=== PATIENT | male | born 1985 | race Caucasian/White ===

== ENCOUNTER 2018-01-12 18:19 | Emergency (ER) | payer SELFPAY ==
[2018-01-12 18:28] VITALS: BP 137/80; PULSE 73; RESP 16; TEMP 98.4; O2SAT 100
[2018-01-12] MEDS ORDERED: BACT800T5 PO (20:21)
[2018-01-12] MEDS ORDERED: IBUP1TAB7 PO (20:21)
--- NOTE | 2018-01-12 20:27 | PD ---
HPI Chief Complaint: Skin Problem Time Seen by Provider: 20:14 Travel History International Travel<30 days: No Contact w/Intl Traveler<30days: No Traveled to known affect area: No History of Present Illness HPI 32-year-old white male presents emergency department complaining of a painful lump to the back of his right calf over the last week. He states that he is living in a sober living facility. Patient denies any fever chills. Pain is mild. No alleviating or exacerbating activities. No prior history of abscess PFSH Past Medical History Narrative Medical Substance abuse Tetanus Vaccination: < 5 Years Past Surgical History Surgical History: No Previous Surgery Social History Alcohol Use: No Tobacco Use: No Substance Use: Yes (hx or molie) Allergies-Medications (Allergen,Severity, Reaction): Coded Allergies: No Known Allergies (Unverified , 01/12/18) Reported Meds & Prescriptions Reported Meds & Active Scripts Active Ibuprofen 800 Mg Tab 800 Mg PO Q8H PRN 7 Days Bactrim DS (Sulfamethoxazole-Trimethoprim) 800-160 Mg Tab 1 Tab PO BID Review of Systems Except as stated in HPI: all other systems reviewed are Neg Physical Exam Narrative GENERAL: This is a well-nourished, well-developed patient, in no apparent distress. SKIN: Patient has multiple follicular lesions to the posterior aspect of the right calf., ecchymoses or lesions. Warm and dry. HEAD: Atraumatic. Normocephalic. EYES: PERRL, EOMI, no discharge or injection. No scleral icterus. EARS: Clear NOSE: Nasal turbinates appear normal. THROAT: Mucosa pink and moist. Airway patent. NECK: Trachea midline. supple, moves head freely. LUNGS: Clear to auscultation. CV: Regular in rhythm. ABDOMEN: Soft nontender. EXT: No clubbing cyanosis or edema. Data Data Last Documented VS Vital Signs Date Time Temp Pulse Resp B/P (MAP) Pulse Ox O2 Delivery O2 Flow Rate FiO2 01/12/18 18:28 98.4 73 16 137/80 (99) 100 Orders Orders Ed Discharge Order (01/12/18 20:20) MDM Medical Decision Making Medical Screen Exam Complete: Yes Emergency Medical Condition: Yes Medical Record Reviewed: Yes Differential Diagnosis MDM: High Differential diagnoses: Abscess, folliculitis, cellulitis, lymphangitis, abrasion, contact dermatitis Narrative Course Folliculitis Diagnosis Primary Impression: Folliculitis Patient Instructions: General Instructions Additional Instructions: Rest. Elevation. keep clean and dry. Warm compresses Daily wound care with soap, water and Neosporin. Motrin and Bactrim DS. Follow-up with a primary care doctor in one week. Return to the ER for any problems. Med/Other Pt SpecificInfo: Prescription(s) given Scripts Ibuprofen (Ibuprofen) 800 Mg Tab 800 MG PO Q8H Y for PAIN GREATER THAN 5 for 7 Days, #21 TAB 0 Refills Prov: Sofiya Hill MD 01/12/18 Sulfamethoxazole-Trimethoprim (Bactrim DS) 800-160 Mg Tab 1 TAB PO BID for Infection, #20 TAB 0 Refills Prov: Sofiya Hill MD 01/12/18 Disposition: 01 DISCHARGE HOME Condition: Stable Marc Melgar Jan 12, 2018 20:27
== END 2018-01-12 20:48 | disposition home or self-care (01) ==
LOC: NEPD 18:19
DX: L73.9 Follicular disorder, unspecified (principal)
CPT/HCPCS: 99283

== ENCOUNTER 2018-04-29 02:49 | Emergency (ER) | payer SELFPAY ==
[~2018-04-29 02:49] MED LIST: BACT800T5 PO; IBUP1TAB7 PO
[2018-04-29 02:51] VITALS: BP 132/92; PULSE 102; RESP 18; TEMP 98; O2SAT 100
[2018-04-29] MEDS ORDERED: SODIUM CHLORIDE 0.9% FLUSH 10 ML FLUSH IV FLUSH PRN (03:15)
[2018-04-29] MEDS ORDERED: LORazepam 2 MG/ML VIAL IV PUSH ONE (03:15)
[2018-04-29] MEDS ORDERED: SODIUM CHLOR 0.9% 1000 ML INJ 1,000 ML IV SCH (03:15)
[2018-04-29 03:52] LABS: BILIRUBIN, URINE NEG (NEG); BLOOD, URINE SMALL (NEG); GLUCOSE,URINE NEG (NEG); HYALINE CAST, URINE 37 /lpf (RARE); KETONE, URINE NEG (NEG); MUCUS URINE FEW /lpf (OCC); NITRITE,URINE NEG (NEG); URINE COLOR YELLOW (YELLW/STRAW); URINE LEUKOCYTE ESTERASE NEG (NEG)
[2018-04-29 03:56] VITALS: RESP 16
[2018-04-29 04:06] LABS: ALBUMIN 3.8 GM/DL (3.4-5.0); ALKALINE PHOSPHATASE 62 U/L (45-117); ALT (GPT) 38 U/L (12-78); AST (GOT) 35 U/L (15-37); BICARBONATE 25.9 MEQ/L (21.0-32.0); BLOOD UREA NITROGEN 19 MG/DL (7-18); CALCIUM 9.2 MG/DL (8.5-10.1); CHLORIDE 106 MEQ/L (98-107); CREATININE 1.35 MG/DL (0.60-1.30); GLOMERULAR FILTRATION RATE 62 ML/MIN (>89); GLUCOSE,RANDOM 63 MG/DL (74-106); SODIUM (NA) 140 MEQ/L (136-145); TOTAL BILIRUBIN ADULT 0.5 MG/DL (0.2-1.0); TOTAL PROTEIN 8.3 GM/DL (6.4-8.2)
[2018-04-29 04:48] LABS: AUTOMATED NEUTROPHIL # 3.8 TH/MM3 (1.8-7.7); BASOPHIL % 0.5 % (0.0-2.0); EOSINOPHIL # 0.1 TH/MM3 (0-0.4); EOSINOPHIL % 0.8 % (0.0-4.0); HEMOGLOBIN 11.5 GM/DL (13.0-17.0); LYMPH % 30.9 % (9.0-44.0); MEAN CELL VOLUME 88.3 FL (80.0-100.0); MEAN CORPUSCULAR HEMOGLOBIN 29.8 PG (27.0-34.0); MEAN CORPUSCULAR HGB CONC 33.8 % (32.0-36.0); MEAN PLATELET VOLUME 7.2 FL (7.0-11.0); MONO % 9.6 % (0.0-8.0); MONOCYTE # 0.6 TH/MM3 (0-0.9); NEUT % 58.2 % (16.0-70.0); PLATELET COUNT 336 TH/MM3 (150-450); RED BLOOD COUNT 3.85 MIL/MM3 (4.50-5.90); RED CELL DISTRIBUTION WIDTH 12.9 % (11.6-17.2); WHITE BLOOD COUNT 6.5 TH/MM3 (4.0-11.0)
[2018-04-29 04:49] VITALS: PULSE 64; RESP 16; O2SAT 100
--- NOTE | 2018-04-29 05:11 | RADRPT ---
EXAM DATE: 04/29/2018 4:33 AM EDT AGE/SEX: 32 years / Male INDICATIONS: Abdominal pain. CLINICAL DATA: This is the patient's initial encounter. Patient reports that signs and symptoms have been present for 1 day and indicates a pain score of Nonresponsive. MEDICAL/SURGICAL HISTORY: . Substance abuse Non-responsive. RADIATION DOSE: 6.64 CTDI (mGy) COMPARISON: No prior exams available for comparison. TECHNIQUE: Multiple contiguous axial images were obtained through the abdomen. Images were obtained using multiple row detector helical technique. Using dose reduction techniques, radiation dose was ke pt as low as reasonably achievable to obtain optimal diagnostic quality images. FINDINGS: Lower Lungs: The visualized lower lungs are clear. Liver: The liver has a homogeneous density without space-occupying lesion. There is no dilation of th e biliary tree. Gallstone present in the gallbladder Spleen: Homogeneous density without enlargement. Pancreas: Unremarkable without mass or calcification. Kidneys: Normal in size and shape. No evidence of mass or hydronephrosis. Adrenal Glands: Unremarkable. Aorta: The aorta and proximal iliac vessels are grossly unremarkable without aneurysmal dilation. Bowel/Mesentery: The bowel loops are grossly unremarkable. The cecum and sigmoid colon have a normal configuration. Abdominal Wall: Intact. Retroperitoneum: No evidence of adenopathy in the retrocrural, para-aortic, or deep pelvic regions. Bladder: Contours are smooth. Reproductive Organs: No abnormal masses or calcifications seen. Inguinal: The inguinal region is unremarkable without evidence of adenopathy. Bony Structures: Unremarkable. CONCLUSION: The small bowel is fluid-filled. I cannot identify a normal-appearing appendix or abnormal appendix. Repeat study with oral and IV contrast could be performed. There is a gallstone present Electronically signed by: Nima Taylor MD 04/29/2018 5:10 AM EDT
--- NOTE | 2018-04-29 05:35 | PD ---
HPI Chief Complaint: GI Complaint Time Seen by Provider: 03:05 Travel History International Travel<30 days: No Contact w/Intl Traveler<30days: No Traveled to known affect area: No History of Present Illness HPI Patient is a 32 year old male who comes in complaining of pain to his right flank and right side of the abdomen as well as the left side of his jaw. He says he urinated blood earlier today. He admits to using drugs earlier today and says that he just "can't slow down." He says he is sure he has an infection inside of him. He denies fever or chills. He is asking for something to help him calm down. He denies chest pain or SOB. Severity is mild to moderate. PFSH Past Medical History Diminished Hearing: No Hepatitis: Yes Immunizations Current: Yes Past Surgical History Surgical History: No Previous Surgery Social History Alcohol Use: No Tobacco Use: No Substance Use: Yes (hx TAMY. METH, SUBOXONE) Allergies-Medications (Allergen,Severity, Reaction): Coded Allergies: No Known Allergies (Unverified , 04/29/18) Reported Meds & Prescriptions Reported Meds & Active Scripts Active Ibuprofen 800 Mg Tab 800 Mg PO Q8H PRN 7 Days Bactrim DS (Sulfamethoxazole-Trimethoprim) 800-160 Mg Tab 1 Tab PO BID Review of Systems Except as stated in HPI: all other systems reviewed are Neg General / Constitutional: No: Fever, Chills HENT: No: Headaches, Lightheadedness Cardiovascular: No: Chest Pain or Discomfort Respiratory: No: Shortness of Breath Gastrointestinal: No: Nausea, Vomiting Genitourinary: Positive: Flank Pain Skin: Positive Rash Neurologic: No: Weakness, Dizziness Physical Exam Narrative GENERAL: Awake and alert, no acute distress. SKIN: Focused skin assessment warm/dry. Rash to the left side of the jaw, at the midline of his velasco. HEAD: Atraumatic. Normocephalic. EYES: Pupils equal and round and reactive. No scleral icterus. ENT: Mucous membranes pink and moist. NECK: Trachea midline. No JVD. CARDIOVASCULAR: Regular rate and rhythm. No murmur appreciated. RESPIRATORY: No accessory muscle use. Clear to auscultation. Breath sounds equal bilaterally. GASTROINTESTINAL: Abdomen soft, non-tender, nondistended. No CVA tenderness. MUSCULOSKELETAL: No obvious deformities. No clubbing. No cyanosis. No edema. NEUROLOGICAL: Awake and alert. No obvious cranial nerve deficits. Motor grossly within normal limits. Normal speech. PSYCHIATRIC: Appropriate mood and affect; insight and judgment normal. Data Data Last Documented VS Vital Signs Date Time Temp Pulse Resp B/P (MAP) Pulse Ox O2 Delivery O2 Flow Rate FiO2 04/29/18 04:49 64 16 100 Room Air 04/29/18 02:51 98.0 132/92 (105) Orders Orders Complete Blood Count With Diff (04/29/18 03:15) Comprehensive Metabolic Panel (04/29/18 03:15) Urinalysis - C+S If Indicated (04/29/18 03:15) Ct Abd/Pel W/O Iv Contrast (04/29/18 03:15) Iv Access Insert/Monitor (04/29/18 03:15) Ecg Monitoring (04/29/18 03:15) Oximetry (04/29/18 03:15) Sodium Chlor 0.9% 1000 Ml Inj (Ns 1000 M (04/29/18 03:15) Sodium Chloride 0.9% Flush (Ns Flush) (04/29/18 03:15) Creatine Kinase (Cpk) (04/29/18 03:15) Drug Screen, Random Urine (04/29/18 03:15) Lorazepam Inj (Ativan Inj) (04/29/18 03:15) Labs Laboratory Tests Test 04/29/18 03:30 04/29/18 04:35 Urine Color YELLOW Urine Turbidity HAZY Urine pH 5.0 Urine Specific [place] 1.021 Urine Protein 100 mg/dL Urine Glucose (UA) NEG mg/dL Urine Ketones NEG mg/dL Urine Occult Blood SMALL Urine Nitrite NEG Urine Bilirubin NEG Urine Urobilinogen LESS THAN 2 mg/dL Urine Leukocyte Esterase NEG Urine RBC 4 /hpf Urine WBC 4 /hpf Urine Hyaline Casts 37 /lpf Urine Mucus FEW /lpf Microscopic Urinalysis Comment CULT NOT INDICATED Blood Urea Nitrogen 19 MG/DL Creatinine 1.35 MG/DL Random Glucose 63 MG/DL Total Protein 8.3 GM/DL Albumin 3.8 GM/DL Calcium Level 9.2 MG/DL Alkaline Phosphatase 62 U/L Aspartate Amino Transf (AST/SGOT) 35 U/L Alanine Aminotransferase (ALT/SGPT) 38 U/L Total Bilirubin 0.5 MG/DL Sodium Level 140 MEQ/L Potassium Level 4.6 MEQ/L Chloride Level 106 MEQ/L Carbon Dioxide Level 25.9 MEQ/L Anion Gap 8 MEQ/L Estimat Glomerular Filtration Rate 62 ML/MIN Total Creatine Kinase 188 U/L Urine Opiates Screen NEG Urine Barbiturates Screen NEG Urine Amphetamines Screen POS Urine Benzodiazepines Screen NEG Urine Cocaine Screen POS Urine Cannabinoids Screen NEG White Blood Count 6.5 TH/MM3 Red Blood Count 3.85 MIL/MM3 Hemoglobin 11.5 GM/DL Hematocrit 34.0 % Mean Corpuscular Volume 88.3 FL Mean Corpuscular Hemoglobin 29.8 PG Mean Corpuscular Hemoglobin Concent 33.8 % Red Cell Distribution Width 12.9 % Platelet Count 336 TH/MM3 Mean Platelet Volume 7.2 FL Neutrophils (%) (Auto) 58.2 % Lymphocytes (%) (Auto) 30.9 % Monocytes (%) (Auto) 9.6 % Eosinophils (%) (Auto) 0.8 % Basophils (%) (Auto) 0.5 % Neutrophils # (Auto) 3.8 TH/MM3 Lymphocytes # (Auto) 2.0 TH/MM3 Monocytes # (Auto) 0.6 TH/MM3 Eosinophils # (Auto) 0.1 TH/MM3 Basophils # (Auto) 0.0 TH/MM3 CBC Comment DIFF FINAL Differential Comment MDM Medical Decision Making Medical Screen Exam Complete: Yes Emergency Medical Condition: Yes Medical Record Reviewed: Yes Differential Diagnosis renal stone vs rhabdo vs dehydration vs intoxication Narrative Course Patient is a 32 year old male who comes in because he urinated blood, had right flank pain and left jaw pain. Exam shows abdomen is nontender to palpation. Patient requesting something to calm down. IV established, labs sent. Labs show no acute abnormalities. Given IVF an Ativan. CT abd/pelvis performed to asses for renal stone shows no acute abnormalities. Last 24 hours Impressions Abdomen/Pelvis CT 04/29/18 0315 Signed Impressions: CONCLUSION: The small bowel is fluid-filled. I cannot identify a normal-appearing appendix or abnormal appendix. Repeat study with oral and IV contrast could be performed . There is a gallstone present Reexamination of his abdomen still shows no tenderness. Patient discharged home. Advised to quit using drugs. Advised to increase his fluid intake. Advised to return to the ED as needed for any worsening symptoms. Diagnosis Primary Impression: Drug abuse Patient Instructions: General Instructions, Methamphetamine Abuse (ED) Additional Instructions: Stop using drugs. He increase her fluid intake. Return to the ED as needed for any worsening symptoms. Disposition: 01 DISCHARGE HOME Condition: Stable Sofiya Hill MD Apr 29, 2018 05:35
[2018-04-29] MEDS ORDERED: MUPI2OIN TOPICAL (14:04)
== END 2018-04-29 06:10 | disposition home or self-care (01) ==
LOC: NEPE 02:49
DX: F19.10 Other psychoactive substance abuse, uncomplicated (principal); R10.9 Unspecified abdominal pain; R68.84 Jaw pain; R31.9 Hematuria, unspecified; Z79.899 Other long term (current) drug therapy
CPT/HCPCS: 74176; 80053; 80307; 81001; 82550; 85025; 96361; 96374; 99284; J2060; J7030

== ENCOUNTER 2018-04-29 11:53 | Emergency (ER) | payer SELFPAY ==
[~2018-04-29] VITALS: Ht 172.7 cm; Wt 70.0 kg
[2018-04-29 12:00] VITALS: BP 121/61; PULSE 67; RESP 16; TEMP 97.5; O2SAT 100
[2018-04-29] MEDS ORDERED: MUPI2OIN TOPICAL (14:04)
--- NOTE | 2018-04-29 14:10 | PD ---
HPI Chief Complaint: Musculoskeletal Complaint Time Seen by Provider: 13:42 Travel History International Travel<30 days: No Contact w/Intl Traveler<30days: No Traveled to known affect area: No History of Present Illness HPI 32-year-old male presents to the emergency room for evaluation of pain to bilateral jaw, left worse than right. Symptoms have been present for 3 weeks. States the area is sore to the touch. He denies any trauma or injury to the area. He has not been able to shave because of the pain. Sometimes radiates into his entire scalp. He reports pain with movement of the jaw. Denies dental pain or ear pain. Denies any ear drainage. He has not been applying anything to the area. Patient uses IV heroin, last use 2 days ago. States he is actively withdrawing and is requesting medication to help him get through his withdrawals. Symptoms are shakiness, anxiety. He is requesting tramadol, Lortab, or Ativan. PFSH Past Medical History Diminished Hearing: No Hepatitis: Yes Immunizations Current: Yes Social History Alcohol Use: No Tobacco Use: No Substance Use: Yes (hx TAMY. METH, SUBOXONE) Allergies-Medications (Allergen,Severity, Reaction): Coded Allergies: No Known Allergies (Unverified , 04/29/18) Reported Meds & Prescriptions Reported Meds & Active Scripts Active Mupirocin Topical (Mupirocin) 2 % Oint 1 Applic TOPICAL BID Ibuprofen 800 Mg Tab 800 Mg PO Q8H PRN 7 Days Bactrim DS (Sulfamethoxazole-Trimethoprim) 800-160 Mg Tab 1 Tab PO BID Review of Systems Except as stated in HPI: all other systems reviewed are Neg Physical Exam Narrative GENERAL: Well-nourished, well-developed male in no acute distress. Afebrile. Ambulatory. SKIN: Focused skin assessment warm/dry. Multiple superficial ulcerations with yellow, crusty drainage underneath bilateral ear lobes. Tender to palpation. No surrounding induration, erythema, edema, or drainage. HEAD: Normocephalic. EYES: No scleral icterus. No injection or drainage. NECK: Supple, trachea midline. No JVD or lymphadenopathy. DENTAL: No loose or chipped teeth. No malocclusion. EARS: Bilateral pinnae and external canals appear within normal limits. Bilateral tympanic membranes without erythema, dullness or perforation. CARDIOVASCULAR: Regular rate and rhythm without murmurs, gallops, or rubs. RESPIRATORY: Breath sounds equal bilaterally. No accessory muscle use. Data Data Last Documented VS Vital Signs Date Time Temp Pulse Resp B/P (MAP) Pulse Ox O2 Delivery O2 Flow Rate FiO2 04/29/18 12:00 97.5 67 16 121/61 (81) 100 MDM Medical Decision Making Medical Screen Exam Complete: Yes Emergency Medical Condition: Yes Medical Record Reviewed: Yes Differential Diagnosis Impetigo, herpes zoster, folliculitis Narrative Course 32-year-old male presents to the emergency room for evaluation of pain to bilateral jaw for the past 3 weeks. Physical exam reveals impetiginous lesions underneath both ear lobes that are tender to palpation. No evidence of deep infection. Patient has full range motion of the jaw. Ear exam is unremarkable without evidence of infection. Vital signs stable. He had a complete workup earlier today that was unremarkable. Patient is also requesting tramadol, Ativan, and/or Lortab for his withdrawal symptoms. He was informed that he will not be given any of his medications in the emergency room nor discharged with him. Told to follow-up with an outpatient rehabilitation program. He was offered Vistaril but stated he could get that on the street. Discharged with mupirocin and told to return for worsening symptoms. He understands and agrees to plan. Diagnosis Primary Impression: Folliculitis Referrals: [facility] (Out patient) Additional Instructions: Apply ointment to affected areas. Follow-up for drug rehabilitation. Follow-up with a primary care physician. Return for worsening symptoms. Med/Other Pt SpecificInfo: Prescription(s) given Scripts Mupirocin Topical (Mupirocin Topical) 2 % Oint 1 APPLIC TOPICAL BID for Mgmt Bacterial Infection, #22 GM 0 Refills Prov: Gail Acevedo MD 04/29/18 Disposition: 01 DISCHARGE HOME Condition: Stable Sherice Ramos Apr 29, 2018 14:10
== END 2018-04-29 14:10 | disposition home or self-care (01) ==
LOC: NEPK 11:53
DX: L73.9 Follicular disorder, unspecified (principal)
CPT/HCPCS: 99283